=== PATIENT | male | born 1965 | race Caucasian/White ===

== ENCOUNTER 2023-04-14 11:32 | Outpatient (CLI) | payer BC, SELFPAY | END 2023-04-14 11:33 | disposition home or self-care (01) | LOC: AMB 04-28 01:51 | PROVIDERS: Visit Provider Emergency Medicine Emergency Medical Services | DX: R06.09 Other forms of dyspnea (principal); R20.0 Anesthesia of skin | CPT/HCPCS: A0425; A0427 ==